=== PATIENT | male | born 1965 | race Caucasian/White ===

== ENCOUNTER → 2021-01-03 | Outpatient (CLI) | payer OTHER ==
--- NOTE | 2021-01-03 08:58 | Diagnostic Imaging Report ---
INDICATION: Bilateral shoulder pain. COMPARISON: None. FINDINGS: Multiple radiographic views of bilateral shoulders were obtained. Orthopedic anchors are noted within the lateral margins the right humeral head consistent with previous surgical repair. No unexpected radiopaque foreign bodies are seen. Osseous structures are intact. Joint spaces are maintained. There is no evidence of acute fracture or dislocation. Included portions of right hemithorax are clear. Left shoulder shows no acute fracture or dislocation. Osseous structures are intact. There is moderate narrowing of the acromiohumeral joint space suggestive of chronic rotator cuff tear. Joint spaces are otherwise maintained. Included portions of left hemithorax are clear. No unexpected radiopaque foreign bodies are seen. IMPRESSION: 1. Postsurgical changes to the right shoulder, but no evidence of acute fracture or dislocation. 2. No acute fracture or dislocation in the left shoulder. 3. Findings suggestive of chronic rotator cuff tear on the left. Dictated by: Dictated on workstation # [id number]
== END ==
LOC: RAD FS 08:26
PROVIDERS: ATTEND Nurse Practitioner
DX: M25.512 Pain in left shoulder (principal); M25.511 Pain in right shoulder; Z98.890 Other specified postprocedural states